=== PATIENT | female | born 1990 | race African-American/Black ===

== ENCOUNTER 2016-12-21 09:19 | Emergency (ER) | payer OTHER ==
[~2016-12-21] VITALS: Ht 170.2 cm; Wt 55.0 kg
[~2016-12-21 09:19] MED LIST: ALBU1AER INH
[2016-12-21] MEDS ORDERED: TRICTAB PO (10:29)
--- NOTE | 2016-12-21 10:56 | PD ---
HPI Chief Complaint: Related Problem Time Seen by Provider: 10:29 Travel History International Travel<30 days: No Contact w/Intl Traveler<30days: No Traveled to known affect area: No History of Present Illness HPI This is a 26-year-old female who presents to the emergency department with spotting that started this morning associated with some lower abdominal cramping , mild, constant throughout today. She denies any heavy bleeding. She said she had bleeding 1 week ago when she went to [facility] where they did not ultrasound and then had her come back in 2 days for repeat test. At that point they told her everything was fine. She's been once before and has a [id number]. She's never had a miscarriage before. [facility] Past Medical History Medical History: Denies Significant Hx Cancer: No Developmental Delay: No Diabetes: No Diminished Hearing: No Immunizations Current: No Migraines: No ?: LMP: 12/06/16 : 2 Para: 1 Past Surgical History Surgical History: No Previous Surgery Other Surgery: No Social History Alcohol Use: No (NOT SINCE PREGNACY ) Tobacco Use: No (NOT SINCE PREGNACY ) Substance Use: No (HX [facility]) Allergies-Medications (Allergen,Severity, Reaction): Coded Allergies: No Known Allergies (Verified , 12/21/16) Reported Meds & Prescriptions Reported Meds & Active Scripts Active Reported ( Vit-Ferrous Fumarate) 1 Tab Tab 1 Tab PO DAILY Review of Systems Except as stated in HPI: all other systems reviewed are Neg Physical Exam Narrative GENERAL:Well appearing, no acute distress SKIN: Warm and dry. HEAD: Atraumatic. Normocephalic. EYES: Pupils equal and round. No injection or drainage. ENT: Moist mucous membranes NECK: Trachea midline. CARDIOVASCULAR: Regular rate and rhythm. No murmur appreciated. RESPIRATORY: Clear to auscultation. Breath sounds equal bilaterally. GASTROINTESTINAL: Abdomen soft, mildly tender to palpation in the lower abdomen with no rebound or guarding. MUSCULOSKELETAL: No obvious deformities. NEUROLOGICAL: Awake and alert. No obvious cranial nerve deficits. Moving all extremities. PSYCHIATRIC: Appropriate mood and affect; insight and judgment normal. Data Data Last Documented VS Vital Signs Date Time Temp Pulse Resp B/P Pulse Ox O2 Delivery O2 Flow Rate FiO2 12/21/16 10:26 74 18 Orders Ed Poc Ultrasound (12/21/16 ) [facility] Medical Decision Making Medical Screen Exam Complete: Yes Emergency Medical Condition: Yes Differential Diagnosis Threatened miscarriage, incomplete miscarriage, complete miscarriage, ectopic Narrative Course This is a 26-year-old female who presents to the emergency department with spotting in the setting of early . She thinks she is about 6 weeks . Sgyyr-xr-[id number] ultrasound was performed which demonstrates an intrauterine too early to obtain a heart rate. She also evidently had serial hCGs performed at an outside hospital last week which were reassuring. She is Rh+ from a blood type performed in 2010. I think the patient is safe for discharge and outpatient follow-up with [employer]. Procedures Procedure Narrative Bflie-td-eggw ultrasound: Gestational sac and yolk sac clearly visualized, early intrauterine , unable to assess heart rate. Diagnosis Primary Impression: Spotting in first trimester Patient Instructions: General Instructions Additional Instructions: Many women who have vaginal bleeding in early go on to have normal pregnancies. However some women that have vaginal bleeding will have a miscarriage and it is important to followup with your chargemaster analyst. If you develop severe abdominal pain, fever, persistent vomiting or inability to eat, heavy vaginal bleeding using more than one pad an hour, lightheadedness , dizziness, chest pain or shortness of breath return to the emergency department immediately. Followup with your chargemaster analyst as soon as possible. Take Tylenol as needed for pain. Med/Other Pt SpecificInfo: No Change to Meds Disposition: 01 DISCHARGE HOME Condition: Stable Lily Glasgow MD Dec 21, 2016 10:56
== END 2016-12-21 11:29 | disposition home or self-care (01) ==
LOC: NEPE 09:19
DX: O26.851 Spotting complicating pregnancy, first trimester (principal); R10.9 Unspecified abdominal pain
CPT/HCPCS: 99283

== ENCOUNTER 2017-01-06 10:32 | Emergency (ER) | payer OTHER ==
[~2017-01-06] VITALS: Ht 170.2 cm; Wt 50.0 kg
[~2017-01-06 10:32] MED LIST changes: -ALBU1AER INH; +TRICTAB PO
[2017-01-06 10:34] VITALS: BP 114/58; PULSE 80; TEMP 98.3; O2SAT 100
[2017-01-06] MEDS ORDERED: SODIUM CHLOR 0.9% 1000 ML INJ 1,000 ML IV ONE (11:15)
[2017-01-06] MEDS ORDERED: ONDANSETRON HCL 4 MG/2 ML VIAL IV ONE (11:15)
--- NOTE | 2017-01-06 11:26 | PD ---
HPI Chief Complaint: Dizziness Time Seen by Provider: 10:49 Travel History International Travel<30 days: No Contact w/Intl Traveler<30days: No Traveled to known affect area: No History of Present Illness HPI 26 year-old woman, at 8 weeks 5 days by dates, LMP November 05, 2 para 1 who presents to the emergency department with nausea and vomiting. She she's had some morning sickness and queasiness since she's been . Hasn't really had a lot of vomiting. This morning started having heavy vomiting and also feeling lightheaded and dizzy. She otherwise has been feeling generally well. No vaginal discharge or vaginal bleeding. No UTI symptoms. No chest pain or trouble breathing. History Past Medical History Medical History: Denies Significant Hx Tetanus Vaccination: > 5 Years Influenza Vaccination: No : 2 Para: 1 Past Surgical History Surgical History: No Previous Surgery Social History Alcohol Use: No (NOT SINCE PREGNACY ) Tobacco Use: No (NOT SINCE PREGNACY ) Allergies-Medications (Allergen,Severity, Reaction): Coded Allergies: No Known Allergies (Verified , 01/06/17) Reported Meds & Prescriptions Reported Meds & Active Scripts Active Reported ( Vit-Ferrous Fumarate) 1 Tab Tab 1 Tab PO DAILY Review of Systems Except as stated in HPI: all other systems reviewed are Neg Physical Exam Narrative GENERAL: Well-appearing 26 year-old woman, no acute distress. SKIN: Warm and dry. CARDIOVASCULAR: Regular rate and rhythm. No murmur appreciated. RESPIRATORY: No accessory muscle use. Clear to auscultation. Breath sounds equal bilaterally. GASTROINTESTINAL: Abdomen soft, non-tender, nondistended. Hepatic and splenic margins not palpable. MUSCULOSKELETAL: No obvious deformities. No clubbing. No cyanosis. No edema. NEUROLOGICAL: Awake and alert. No obvious cranial nerve deficits. Motor grossly within normal limits. Normal speech. PSYCHIATRIC: Appropriate mood and affect; insight and judgment normal. Data Data Last Documented VS Vital Signs Date Time Temp Pulse Resp B/P Pulse Ox O2 Delivery O2 Flow Rate FiO2 01/06/17 10:34 98.3 80 114/58 100 Orders Complete Blood Count With Diff (01/06/17 11:04) Basic Metabolic Panel (Bmp) (01/06/17 11:04) Ua Includes Microscopic (01/06/17 11:04) Ed Poc Ultrasound (01/06/17 ) Iv Access Insert/Monitor (01/06/17 11:04) Sodium Chlor 0.9% 1000 Ml Inj (Ns 1000 M (01/06/17 11:15) Ondansetron Inj (Zofran Inj) (01/06/17 11:15) Labs Laboratory Tests Test 01/06/17 11:15 White Blood Count 4.8 TH/MM3 Red Blood Count 4.03 MIL/MM3 Hemoglobin 11.3 GM/DL Hematocrit 33.7 % Mean Corpuscular Volume 83.8 FL Mean Corpuscular Hemoglobin 28.1 PG Mean Corpuscular Hemoglobin 33.6 % Concent Red Cell Distribution Width 13.3 % Platelet Count 218 TH/MM3 Mean Platelet Volume 7.3 FL Neutrophils (%) (Auto) 48.8 % Lymphocytes (%) (Auto) 41.0 % Monocytes (%) (Auto) 8.3 % Eosinophils (%) (Auto) 1.5 % Basophils (%) (Auto) 0.4 % Neutrophils # (Auto) 2.3 TH/MM3 Lymphocytes # (Auto) 2.0 TH/MM3 Monocytes # (Auto) 0.4 TH/MM3 Eosinophils # (Auto) 0.1 TH/MM3 Basophils # (Auto) 0.0 TH/MM3 CBC Comment DIFF FINAL Differential Comment Urine Color YELLOW Urine Turbidity CLOUDY Urine pH 7.0 Urine Specific Benedict 1.017 Urine Protein TRACE mg/dL Urine Glucose (UA) NEG mg/dL Urine Ketones NEG mg/dL Urine Occult Blood NEG Urine Nitrite NEG Urine Bilirubin NEG Urine Urobilinogen LESS THAN 2.0 MG/DL Urine Leukocyte Esterase MOD Urine RBC 2 /hpf Urine WBC 3 /hpf Urine Squamous Epithelial 6 /hpf Cells Urine Transitional Epithelial <1 /hpf Cells Urine Amorphous Sediment RARE Urine Bacteria OCC /hpf Urine Mucus FEW /lpf Sodium Level 138 MEQ/L Potassium Level 3.5 MEQ/L Chloride Level 105 MEQ/L Carbon Dioxide Level 24.5 MEQ/L Anion Gap 9 MEQ/L Blood Urea Nitrogen 8 MG/DL Creatinine 0.64 MG/DL Estimat Glomerular Filtration 138 ML/MIN Rate Random Glucose 44 MG/DL Calcium Level 8.4 MG/DL [facility] Medical Decision Making Medical Screen Exam Complete: Yes Emergency Medical Condition: Yes Interpretation(s) LABS: CBC remarkable for mild anemia. BMP remarkable for a glucose 44 UA unremarkable Differential Diagnosis Nausea vomiting of , dehydration, anemia, UTI, other Narrative Course Medical decision making INITIAL: Well 26 year-old woman at 8 weeks who presents with nausea vomiting and lightheadedness. We'll check labs, UA, bedside ultrasound, give IV fluids and antiemetics. Outpatient follow-up. Procedures Procedure Narrative Point of care ultrasound: Focus transabdominal ultrasounds performed by me at the bedside for the purpose of evaluating for well-being. [place] intrauterine was identified measuring 8 weeks 6 days by crown rump length. heart rate appropriate. Diagnosis Primary Impression: Nausea & vomiting Additional Instructions: Use Zofran as needed for nausea or vomiting. Follow-up with your OB doctor in the next 2-3 days. Return to the emergency department for any new or worsening symptoms. Med/Other Pt SpecificInfo: Prescription(s) given Scripts Ondansetron Odt (Zofran Odt)4 Mg Tab4 Mg SL Q8HR PRN (Nausea/Vomiting) #15 TAB May substitute non-ODT form. Prov:Jeremy Moreno MD 01/06/17 Disposition: 01 DISCHARGE HOME Condition: Stable Jeremy Moreno MD Jan 06, 2017 11:26
[2017-01-06 11:36] LABS: AUTOMATED NEUTROPHIL # 2.3 TH/MM3 (1.8-7.7); BASOPHIL % 0.4 % (0.0-2.0); EOSINOPHIL # 0.1 TH/MM3 (0-0.4); EOSINOPHIL % 1.5 % (0.0-4.0); HEMATOCRIT 33.7 % (35.0-46.0); HEMO FLAGS DIFF FINAL; MEAN CELL VOLUME 83.8 FL (80.0-100.0); MEAN CORPUSCULAR HEMOGLOBIN 28.1 PG (27.0-34.0); MEAN CORPUSCULAR HGB CONC 33.6 % (32.0-36.0); MONO % 8.3 % (0.0-8.0); NEUT % 48.8 % (16.0-70.0); PLATELET COUNT 218 TH/MM3 (150-450); RED BLOOD COUNT 4.03 MIL/MM3 (4.00-5.30); RED CELL DISTRIBUTION WIDTH 13.3 % (11.6-17.2); WHITE BLOOD COUNT 4.8 TH/MM3 (4.0-11.0)
[2017-01-06 11:51] LABS: BLOOD, URINE NEG (NEG); GLUCOSE,URINE NEG (NEG); KETONE, URINE NEG (NEG); MUCUS URINE FEW /lpf (OCC); NITRITE,URINE NEG (NEG); SQUAMOUS EPITHELIAL CELL URINE 6 /hpf (0-5); TRANSITIONAL EPI CELLS, URINE <1 /hpf; URINE COLOR YELLOW (YELLW/STRAW)
[2017-01-06 11:53] LABS: BACTERIA, URINE OCC /hpf
[2017-01-06 12:11] LABS: BICARBONATE 24.5 MEQ/L (21.0-32.0); POTASSIUM 3.5 MEQ/L (3.5-5.1)
[2017-01-06] MEDS ORDERED: ZOFR4TAB3 SL (12:24)
== END 2017-01-06 12:38 | disposition home or self-care (01) ==
LOC: NEPA 10:32
DX: O21.9 Vomiting of pregnancy, unspecified (principal); R42 Dizziness and giddiness; Z3A.08 8 weeks gestation of pregnancy; Z87.891 Personal history of nicotine dependence
CPT/HCPCS: 80048; 81001; 85025; 96361; 96374; 99284; J2405; J7030

== ENCOUNTER 2017-01-31 08:58 | Emergency (ER) | payer OTHER ==
[~2017-01-31] VITALS: Ht 170.2 cm; Wt 53.0 kg
[~2017-01-31 08:58] MED LIST changes: +ZOFR4TAB3 SL
[2017-01-31 09:00] VITALS: BP 135/80; PULSE 93; RESP 14; TEMP 98; O2SAT 100
[2017-01-31 09:12] VITALS: O2SAT 100
[2017-01-31] MEDS ORDERED: IPRA0.06 EACH NARE (09:20)
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
== END 2017-01-31 09:28 | disposition home or self-care (01) ==
LOC: NEPD 08:58
DX: O26.899 Other specified pregnancy related conditions, unspecified trimester (principal); J01.00 Acute maxillary sinusitis, unspecified; Z3A.00 Weeks of gestation of pregnancy not specified
CPT/HCPCS: 99283

== ENCOUNTER 2017-10-23 09:26 | Emergency (ER) | payer MEDICAID, OTHER ==
[~2017-10-23] VITALS: Ht 170.2 cm; Wt 72.0 kg
[~2017-10-23 09:26] MED LIST changes: +IPRA0.06 EACH NARE; -ZOFR4TAB3 SL
[2017-10-23 09:28] VITALS: BP 131/63; PULSE 60; RESP 14; TEMP 99.1; O2SAT 99
--- NOTE | 2017-10-23 09:52 | PD ---
HPI Chief Complaint: Injury Time Seen by Provider: 09:34 Travel History International Travel<30 days: No Contact w/Intl Traveler<30days: No Traveled to known affect area: No History of Present Illness HPI 27-year-old female presents to the emergency room for evaluation of right ankle pain and swelling after injury 2 nights ago. Patient states he was wearing extremely tight boots that she had difficulty getting off. She does not remember injuring it. Pain is worse when she pushes on it and with certain range of motion. She took Tylenol without relief in symptoms. There is no radiation of pain. Denies calf pain. States she has tingling on the top of her foot. No chronic medical conditions or daily medications. PFSH Past Medical History Asthma: Yes Cancer: No Developmental Delay: No Diabetes: No Diminished Hearing: No Immunizations Current: No Migraines: No ?: Not LMP: 10/08/17 : 2 Para: 1 Miscarriage: 0 : 0 Past Surgical History Other Surgery: No Social History Alcohol Use: No ( ) Tobacco Use: No ( ) Substance Use: No Allergies-Medications (Allergen,Severity, Reaction): Coded Allergies: No Known Allergies (Verified Adverse Reaction, Unknown, 10/23/17) Reported Meds & Prescriptions Reported Meds & Active Scripts Active Review of Systems Except as stated in HPI: all other systems reviewed are Neg Physical Exam Narrative GENERAL: Well-nourished, well-developed female in no acute distress. Afebrile. Ambulatory. SKIN: Focused skin assessment warm/dry. No significant erythema or ecchymosis. HEAD: Normocephalic. EYES: No scleral icterus. No injection or drainage. NECK: Supple, trachea midline. No JVD or lymphadenopathy. CARDIOVASCULAR: Regular rate and rhythm without murmurs, gallops, or rubs. RESPIRATORY: Breath sounds equal bilaterally. No accessory muscle use. MUSCULOSKELETAL: No cyanosis. Very mild edema of the right lateral fibula. Moderate tenderness to palpation of the right lateral, distal fibula. 2+ dorsalis pedis pulse. Full range of motion of the right lower extremity. Data Data Last Documented VS Vital Signs Date Time Temp Pulse Resp B/P (MAP) Pulse Ox O2 Delivery O2 Flow Rate FiO2 10/23/17 09:28 99.1 60 14 131/63 (85) 99 Orders Orders Tibia/Fibula (Ap/Lat) (10/23/17 ) MDM Medical Decision Making Medical Screen Exam Complete: Yes Emergency Medical Condition: Yes Medical Record Reviewed: Yes Differential Diagnosis Contusion, soft tissue injury, fracture, sprain, strain Narrative Course 27-year-old female presents to the emergency room for evaluation of right lateral ankle pain and swelling after injuring it 3 days ago. Patient has been ambulatory. Right lower extremity is neurovascularly intact with 2+ dorsalis pedis pulse. She has full range of motion. There is moderate tenderness to palpation of the right lateral, distal ankle. No obvious deformity. Mild edema. Patient had no significant injury other than wearing boots that are too tight but because this is a nonweightbearing bone and there is some edema, x- rays were performed. X-rays are negative. This is soft tissue injury. Patient discharged with orthopedic instructions and told to follow-up with a PCP return as needed. She understands and agrees to plan. Diagnosis Primary Impression: Contusion of right leg Qualified Codes: S80.11XA - Contusion of right lower leg, initial encounter Referrals: Primary Care Physician Additional Instructions: Rest and drink plenty of fluids. Take ibuprofen with food as directed, as needed for pain. Elevate and Apply ice to the affected area for 20 minutes at a time, as needed for pain and swelling. Follow-up with a primary care physician. Return to the emergency room for worsening symptoms. Disposition: 01 DISCHARGE HOME Condition: Stable Reny Bustos Oct 23, 2017 09:52
--- NOTE | 2017-10-23 10:28 | RADRPT ---
EXAM DATE/TIME: 10/23/2017 10:01 [place] COMPARISON: No previous studies available for comparison. INDICATIONS : Right distal tib/fib pain. Possible ankle rolling injury. MEDICAL HISTORY : None. SURGICAL HISTORY : None. ENCOUNTER: Initial ACUITY: 2 days PAIN SCORE: 6/10 LOCATION: Right distal tib/fib, lateral FINDINGS: No definite fractures, or dislocations are identified. No definite lytic or sclerotic lesion is seen . CONCLUSION: Unremarkable study. Catrina Goff MD on October 23, 2017 at 10:26 Board Certified Radiologist. This report was verified electronically.
== END 2017-10-23 10:49 | disposition home or self-care (01) ==
LOC: NEPK 09:26
DX: S80.11XA Contusion of right lower leg, initial encounter (principal); X58.XXXA Exposure to other specified factors, initial encounter
CPT/HCPCS: 73590; 99283

== ENCOUNTER 2017-12-18 19:21 | Emergency (ER) | payer MEDICAID ==
[2017-12-18 19:26] VITALS: BP 129/76; PULSE 101; RESP 16; TEMP 100.1
[2017-12-18] MEDS ORDERED: SODIUM CHLOR 0.9% 1000 ML INJ 1,000 ML IV SCH (20:06)
--- NOTE | 2017-12-18 20:09 | PD ---
HPI Chief Complaint: GI Complaint Time Seen by Provider: 19:56 Travel History International Travel<30 days: No Contact w/Intl Traveler<30days: No Traveled to known affect area: No History of Present Illness HPI Patient is a 27-year-old female presenting to the emergency room for evaluation of abdominal pain, vomiting, diarrhea. Patient states it started with abdominal cramping around 5 AM this morning, by 8 AM she started vomiting. She reports 3-4 episodes of loose stools today. She last vomited 1 hour prior to arrival. She reports the pain in her stomach is in the upper quadrants and crampy in nature. She reports the pain is a 7 out of 10. Onset was gradual, symptom severity is mild to moderate, there are no alleviating factors. Patient states that she ate a tuna sandwich from [employer] yesterday evening but denies any contaminated foods otherwise. She denies any medical history. PFSH Past Medical History Asthma: Yes Influenza Vaccination: No ?: Not : 2 Para: 1 Miscarriage: 0 : 0 Past Surgical History Surgical History: No Previous Surgery Other Surgery: No Social History Alcohol Use: No ( ) Tobacco Use: No ( ) Substance Use: No Allergies-Medications (Allergen,Severity, Reaction): Coded Allergies: No Known Allergies (Verified Adverse Reaction, Unknown, 10/23/17) Reported Meds & Prescriptions Reported Meds & Active Scripts Active Zofran Odt (Ondansetron Odt) 4 Mg Tab 4 Mg SL Q6HR PRN Ibuprofen 800 Mg Tab 800 Mg PO Q6HR PRN Review of Systems Except as stated in HPI: all other systems reviewed are Neg HENT: No: Headaches Cardiovascular: No: Chest Pain or Discomfort Gastrointestinal: Positive: Nausea, Vomiting, Diarrhea, Abdominal Pain Genitourinary: No: Dysuria Musculoskeletal: No: Myalgias Neurologic: No: Weakness Physical Exam Narrative GENERAL: Well-developed, well-nourished, well-appearing -Emirati female. Resting comfortably in no acute distress. SKIN: Warm and dry. HEAD: Atraumatic. Normocephalic. EYES: Pupils equal and round. No scleral icterus. No injection or drainage. ENT: No nasal bleeding or discharge. Mucous membranes pink and moist. NECK: Trachea midline. No JVD. CARDIOVASCULAR: Regular rate and rhythm. RESPIRATORY: No accessory muscle use. Clear to auscultation. Breath sounds equal bilaterally. GASTROINTESTINAL: Abdomen soft, non-tender, nondistended. Hepatic and splenic margins not palpable. No rebound, no guarding, positive bowel sounds. MUSCULOSKELETAL: Extremities without clubbing, cyanosis, or edema. No obvious deformities. NEUROLOGICAL: Awake and alert. No obvious cranial nerve deficits. Motor grossly within normal limits. Five out of 5 muscle strength in the arms and legs. Normal speech. PSYCHIATRIC: Appropriate mood and affect; insight and judgment normal. Data Data Last Documented VS Vital Signs Date Time Temp Pulse Resp B/P (MAP) Pulse Ox O2 Delivery O2 Flow Rate FiO2 12/18/17 22:11 99.1 12/18/17 20:24 100 Room Air 12/18/17 19:26 101 16 129/76 (93) Orders Orders Complete Blood Count With Diff (12/18/17 20:06) Comprehensive Metabolic Panel (12/18/17 20:06) Lipase (12/18/17 20:06) Urinalysis - C+S If Indicated (12/18/17 20:06) Iv Access Insert/Monitor (12/18/17 20:06) Ecg Monitoring (12/18/17 20:06) Oximetry (12/18/17 20:06) Ondansetron Inj (Zofran Inj) (12/18/17 20:15) Sodium Chlor 0.9% 1000 Ml Inj (Ns 1000 M (12/18/17 20:06) Sodium Chloride 0.9% Flush (Ns Flush) (12/18/17 20:15) Famotidine Inj (Pepcid Inj) (12/18/17 20:15) Influenzae A/B Antigen (12/18/17 20:09) Ed Urine Pregnancytest Poc (12/18/17 21:15) Ed Discharge Order (12/18/17 22:36) Labs Laboratory Tests Test 12/18/17 20:17 12/18/17 20:21 White Blood Count 7.7 TH/MM3 Red Blood Count 4.88 MIL/MM3 Hemoglobin 14.1 GM/DL Hematocrit 40.7 % Mean Corpuscular Volume 83.3 FL Mean Corpuscular Hemoglobin 28.9 PG Mean Corpuscular Hemoglobin Concent 34.7 % Red Cell Distribution Width 13.5 % Platelet Count 230 TH/MM3 Mean Platelet Volume 7.9 FL Neutrophils (%) (Auto) 87.9 % Lymphocytes (%) (Auto) 7.3 % Monocytes (%) (Auto) 4.6 % Eosinophils (%) (Auto) 0.0 % Basophils (%) (Auto) 0.2 % Neutrophils # (Auto) 6.8 TH/MM3 Lymphocytes # (Auto) 0.6 TH/MM3 Monocytes # (Auto) 0.4 TH/MM3 Eosinophils # (Auto) 0.0 TH/MM3 Basophils # (Auto) 0.0 TH/MM3 CBC Comment DIFF FINAL Differential Comment Blood Urea Nitrogen 12 MG/DL Creatinine 0.75 MG/DL Random Glucose 91 MG/DL Total Protein 8.0 GM/DL Albumin 4.3 GM/DL Calcium Level 9.3 MG/DL Alkaline Phosphatase 98 U/L Aspartate Amino Transf (AST/SGOT) 21 U/L Alanine Aminotransferase (ALT/SGPT) 31 U/L Total Bilirubin 0.7 MG/DL Sodium Level 140 MEQ/L Potassium Level 3.3 MEQ/L Chloride Level 107 MEQ/L Carbon Dioxide Level 23.3 MEQ/L Anion Gap 10 MEQ/L Estimat Glomerular Filtration Rate 114 ML/MIN Lipase 136 U/L Urine Color YELLOW Urine Turbidity HAZY Urine pH 5.5 Urine Specific [place] 1.028 Urine Protein 30 mg/dL Urine Glucose (UA) NEG mg/dL Urine Ketones 80 mg/dL Urine Occult Blood MOD Urine Nitrite NEG Urine Bilirubin NEG Urine Urobilinogen LESS THAN 2.0 MG/DL Urine Leukocyte Esterase SMALL Urine RBC 1 /hpf Urine WBC 3 /hpf Urine Squamous Epithelial Cells 8 /hpf Urine Mucus MANY /lpf Microscopic Urinalysis Comment CULT NOT INDICATED MDM Medical Decision Making Medical Screen Exam Complete: Yes Emergency Medical Condition: Yes Interpretation(s) Vital Signs Date Time Temp Pulse Resp B/P (MAP) Pulse Ox O2 Delivery O2 Flow Rate FiO2 12/18/17 19:26 100.1 101 16 129/76 (93) Differential Diagnosis Gastritis versus gastroenteritis versus appendicitis is less likely versus metabolic abnormality versus other Narrative Course Patient is a 27-year-old female that presented to emergency part for evaluation of nausea and vomiting. She reported abdominal pain but abdominal exam is benign. Patient had a low-grade temp on arrival, influenza is negative. Labs reviewed, no acute findings identified. Findings appear most consistent with gastroenteritis. Discussed findings with my attending physician. Patient will be given p.o. challenge and discharged home on oral antiemetics as needed. Patient has not vomited while in the emergency department, nor has she had any further diarrhea. Patient tolerated oral fluid challenge. Her temp was reassessed, she no longer has a fever, she was not given any antipyretic in the emergency department. Patient was encouraged to maintain a bland, easy to digest diet increasing as tolerated. She verbalized understanding of these instructions. Patient stable for discharge. Diagnosis Primary Impression: Nausea & vomiting Qualified Codes: R11.2 - Nausea with vomiting, unspecified Referrals: Primary Care Physician Patient Instructions: Acute Nausea and Vomiting (ED), Gastroenteritis (ED), General Instructions Additional Instructions: Maintain a bland, easy to digest diet, increasing as tolerated Take medications as directed Maintain adequate fluid intake Take ibuprofen or acetaminophen as needed and as directed for fevers Return to emergency department for any new worsening symptoms Follow-up with your primary doctor Med/Other Pt SpecificInfo: Prescription(s) given Scripts Ondansetron Odt (Zofran Odt) 4 Mg Tab 4 MG SL Q6HR Y for Nausea/Vomiting, #12 TAB 0 Refills Prov: Renetta Lee 12/18/17 Ibuprofen (Ibuprofen) 800 Mg Tab 800 MG PO Q6HR Y for PAIN, #40 TAB 0 Refills Prov: Renetta Lee 12/18/17 Disposition: 01 DISCHARGE HOME Condition: Stable Renetta Lee Dec 18, 2017 20:09
[2017-12-18] MEDS ORDERED: FAMOTIDINE 20 MG/2 ML VIAL IV PUSH ONE (20:15)
[2017-12-18] MEDS ORDERED: ONDANSETRON HCL 4 MG/2 ML VIAL IVP ONE (20:15)
[2017-12-18] MEDS ORDERED: SODIUM CHLORIDE 0.9% FLUSH 10 ML FLUSH IV FLUSH PRN (20:15)
[2017-12-18 20:24] VITALS: O2SAT 100
--- NOTE | 2017-12-18 20:51 | PD ---
Physical Exam Narrative I, Dr. Blackwell, have reviewed the advance practice practitioner's documentation and am in agreement, met with the patient face to face, made the diagnosis, and the medical decision making was done by me. *My assessment and Findings: Acute gastroenteritis vs. viral syndrome vs. UTI 27yo F with generalized abdominal pain, nonbloody vomiting and nonbloody diarrhea for 1 day. Denies any fever, chest pain, sob. Pt given famotidine and zofran. Pt reevaluated at bedside and is feeling better. Currently denies any abdominal pain. Abdomen is soft, NT/ND. No rebound tenderness or guarding. Labs reviewed, no leukocytosis. H/H normal. Return precautions given. Data Data Last Documented VS Vital Signs Date Time Temp Pulse Resp B/P (MAP) Pulse Ox O2 Delivery O2 Flow Rate FiO2 12/18/17 22:11 99.1 12/18/17 20:24 100 Room Air 12/18/17 19:26 101 16 129/76 (93) Orders Orders Complete Blood Count With Diff (12/18/17 20:06) Comprehensive Metabolic Panel (12/18/17 20:06) Lipase (12/18/17 20:06) Urinalysis - C+S If Indicated (12/18/17 20:06) Iv Access Insert/Monitor (12/18/17 20:06) Ecg Monitoring (12/18/17 20:06) Oximetry (12/18/17 20:06) Ondansetron Inj (Zofran Inj) (12/18/17 20:15) Sodium Chlor 0.9% 1000 Ml Inj (Ns 1000 M (12/18/17 20:06) Sodium Chloride 0.9% Flush (Ns Flush) (12/18/17 20:15) Famotidine Inj (Pepcid Inj) (12/18/17 20:15) Influenzae A/B Antigen (12/18/17 20:09) Ed Urine Pregnancytest Poc (12/18/17 21:15) Ed Discharge Order (12/18/17 22:36) Labs Laboratory Tests Test 12/18/17 20:17 12/18/17 20:21 White Blood Count 7.7 TH/MM3 Red Blood Count 4.88 MIL/MM3 Hemoglobin 14.1 GM/DL Hematocrit 40.7 % Mean Corpuscular Volume 83.3 FL Mean Corpuscular Hemoglobin 28.9 PG Mean Corpuscular Hemoglobin Concent 34.7 % Red Cell Distribution Width 13.5 % Platelet Count 230 TH/MM3 Mean Platelet Volume 7.9 FL Neutrophils (%) (Auto) 87.9 % Lymphocytes (%) (Auto) 7.3 % Monocytes (%) (Auto) 4.6 % Eosinophils (%) (Auto) 0.0 % Basophils (%) (Auto) 0.2 % Neutrophils # (Auto) 6.8 TH/MM3 Lymphocytes # (Auto) 0.6 TH/MM3 Monocytes # (Auto) 0.4 TH/MM3 Eosinophils # (Auto) 0.0 TH/MM3 Basophils # (Auto) 0.0 TH/MM3 CBC Comment DIFF FINAL Differential Comment Blood Urea Nitrogen 12 MG/DL Creatinine 0.75 MG/DL Random Glucose 91 MG/DL Total Protein 8.0 GM/DL Albumin 4.3 GM/DL Calcium Level 9.3 MG/DL Alkaline Phosphatase 98 U/L Aspartate Amino Transf (AST/SGOT) 21 U/L Alanine Aminotransferase (ALT/SGPT) 31 U/L Total Bilirubin 0.7 MG/DL Sodium Level 140 MEQ/L Potassium Level 3.3 MEQ/L Chloride Level 107 MEQ/L Carbon Dioxide Level 23.3 MEQ/L Anion Gap 10 MEQ/L Estimat Glomerular Filtration Rate 114 ML/MIN Lipase 136 U/L Urine Color YELLOW Urine Turbidity HAZY Urine pH 5.5 Urine Specific [place] 1.028 Urine Protein 30 mg/dL Urine Glucose (UA) NEG mg/dL Urine Ketones 80 mg/dL Urine Occult Blood MOD Urine Nitrite NEG Urine Bilirubin NEG Urine Urobilinogen LESS THAN 2.0 MG/DL Urine Leukocyte Esterase SMALL Urine RBC 1 /hpf Urine WBC 3 /hpf Urine Squamous Epithelial Cells 8 /hpf Urine Mucus MANY /lpf Microscopic Urinalysis Comment CULT NOT INDICATED MDM Supervised Visit with JENNIFER: Yes Diagnosis Primary Impression: Nausea & vomiting Qualified Codes: R11.2 - Nausea with vomiting, unspecified Scripts Ondansetron Odt (Zofran Odt) 4 Mg Tab 4 MG SL Q6HR Y for Nausea/Vomiting, #12 TAB 0 Refills Prov: Renetta Lee 12/18/17 Ibuprofen (Ibuprofen) 800 Mg Tab 800 MG PO Q6HR Y for PAIN, #40 TAB 0 Refills Prov: Renetta Lee 12/18/17 Kelly Blackwell DO Dec 18, 2017 20:51
[2017-12-18 21:03] LABS: AUTOMATED NEUTROPHIL # 6.8 TH/MM3 (1.8-7.7); BASOPHIL % 0.2 % (0.0-2.0); HEMATOCRIT 40.7 % (35.0-46.0); HEMOGLOBIN 14.1 GM/DL (11.6-15.3); LYMPH % 7.3 % (9.0-44.0); LYMPHOCYTE # 0.6 TH/MM3 (1.0-4.8); MEAN CELL VOLUME 83.3 FL (80.0-100.0); MEAN CORPUSCULAR HEMOGLOBIN 28.9 PG (27.0-34.0); MEAN CORPUSCULAR HGB CONC 34.7 % (32.0-36.0); MEAN PLATELET VOLUME 7.9 FL (7.0-11.0); MONO % 4.6 % (0.0-8.0); MONOCYTE # 0.4 TH/MM3 (0-0.9); NEUT % 87.9 % (16.0-70.0); PLATELET COUNT 230 TH/MM3 (150-450); RED BLOOD COUNT 4.88 MIL/MM3 (4.00-5.30); RED CELL DISTRIBUTION WIDTH 13.5 % (11.6-17.2); WHITE BLOOD COUNT 7.7 TH/MM3 (4.0-11.0)
[2017-12-18 21:11] LABS: BILIRUBIN, URINE NEG (NEG); BLOOD, URINE MOD (NEG); GLUCOSE,URINE NEG (NEG); KETONE, URINE 80 mg/dL (NEG); MUCUS URINE MANY /lpf (OCC); NITRITE,URINE NEG (NEG); PH, URINE 5.5 (5.0-8.5); SQUAMOUS EPITHELIAL CELL URINE 8 /hpf (0-5); URINE COLOR YELLOW (YELLW/STRAW); URINE LEUKOCYTE ESTERASE SMALL (NEG)
[2017-12-18 21:27] LABS: ALBUMIN 4.3 GM/DL (3.4-5.0); AST (GOT) 21 U/L (15-37); BICARBONATE 23.3 MEQ/L (21.0-32.0); BLOOD UREA NITROGEN 12 MG/DL (7-18); CALCIUM 9.3 MG/DL (8.5-10.1); CHLORIDE 107 MEQ/L (98-107); CREATININE 0.75 MG/DL (0.50-1.00); GLOMERULAR FILTRATION RATE 114 ML/MIN (>89); GLUCOSE,RANDOM 91 MG/DL (74-106); SODIUM (NA) 140 MEQ/L (136-145)
[2017-12-18 21:28] LABS: ALT (GPT) 31 U/L (10-53)
[2017-12-18 21:30] LABS: ALKALINE PHOSPHATASE 98 U/L (45-117); TOTAL BILIRUBIN ADULT 0.7 MG/DL (0.2-1.0)
[2017-12-18] MEDS ORDERED: IBUP1TAB7 PO ×2 (22:08→22:15)
[2017-12-18] MEDS ORDERED: ZOFR4TAB3 SL ×2 (22:08→22:15)
[2017-12-18 22:11] VITALS: TEMP 99.1
== END 2017-12-18 22:51 | disposition home or self-care (01) ==
LOC: NEPD 19:21
DX: R11.2 Nausea with vomiting, unspecified (principal); R10.84 Generalized abdominal pain; R19.7 Diarrhea, unspecified; J45.909 Unspecified asthma, uncomplicated
CPT/HCPCS: 80053; 81001; 83690; 84703; 85025; 87804; 96361; 96374; 96375; 99284; J2405; J7030